=== PATIENT | female | born 1950 | race Caucasian/White ===

== ENCOUNTER 2020-02-15 13:32 | Emergency (ER) | payer MEDICARE, OTHER ==
[2020-02-15] MEDS ORDERED: Acetaminophen 500 MG TAB ONE (13:47)
[2020-02-15] MEDS ORDERED: Cefepime 2 GM VIAL ONE ×2 (13:47→13:50)
[2020-02-15] MEDS ORDERED: Vancomycin 1.5 GRAM/300 ML BAG ONE (13:50)
[2020-02-15 13:58] LABS: #Lymphocytes 1.5 thou/uL (1.20-3.40); #Monocytes 0.5 thou/uL (0.11-0.59); #Neutrophils 6.8 thou/uL (1.40-6.50); %Basophils 0.2 % (0.0-1.0); %Eosinophils 0.3 % (0.0-10.0); %Lymphocytes 17.1 % (21.0-51.0); %Monocytes 5.1 % (0.0-10.0); %Neutrophils 77.3 % (42.0-75.0); Hemoglobin 12.3 g/dL (12.0-16.0); Mean Corpuscular HGB CONC 30.8 g/dL (32.0-36.0); Mean Corpuscular Hemoglobin 29.2 pg (27.0-31.0); Mean Corpuscular Volume 94.8 fL (78.0-98.0); Mean Platelet Volume 5.9 fL (7.4-10.4); Platelet Count 311 thou/uL (130-400); RBC Distribution Width 11.4 % (11.5-14.5); Red Blood Cell (RBC) Count 4.21 mill/uL (4.20-5.40); White Blood Cell (WBC) Count 8.8 thou/uL (4.8-10.8)
[2020-02-15 14:14] LABS: ALT (SGPT) 82 U/L (8-55); AST (SGOT) 59 U/L (5-34); Albumin 3.6 g/dL (3.4-4.8); Alkaline Phosphatase 43 U/L (40-110); Anion Gap 17 mmol/L (10-20); BUN (Urea Nitrogen) 13 mg/dL (9.8-20.1); Bilirubin, Total 0.4 mg/dL (0.2-1.2); Calc. Creatinine Clearance 0 mL/min (70-130); Calcium 8.3 mg/dL (7.8-10.44); Carbon Dioxide 27 mmol/L (23-31); Chloride 88 mmol/L (98-107); Estimated GFR-MDRD 68; Globulin 3.2 g/dL (2.4-3.5); Glucose 79 mg/dL (80-115); Potassium 4.4 mmol/L (3.5-5.1); Protein, Total 6.8 g/dL (6.0-8.3); Sodium 128 mmol/L (136-145)
[2020-02-15 14:32] LABS: CKMB 1.1 ng/mL (0-6.6)
[2020-02-15] MEDS ORDERED: Dexamethasone 4 mg/ml Vial ONE (14:51)
--- NOTE | 2020-02-15 16:45 | RAD ---
PORTABLE CHEST: Date: 02-15-2020 Comparison: None FINDINGS: This portable study at 1358 shows a normal sized heart, but there are patchy interstitial and more co nfluent infiltrative changes in the lungs, more so in the lower half than the upper. While this could represent some pulmonary edema, some of the areas are more confluent and the possibility of infectio n, including Covid, should be entertained. The apices are relatively clear. If any effusions are pres ent, they are minimal. IMPRESSION: Confluent and prominent interstitial infiltrates, mainly in lower halves of each lung. See discussion above. POS: HOME
== END 2020-02-15 18:45 | disposition short-term general hospital (02) ==
LOC: BURERS 13:32
DX: U07.1 COVID-19 (principal); J12.89 Other viral pneumonia; R09.02 Hypoxemia; E03.9 Hypothyroidism, unspecified
CPT/HCPCS: 36415; 71045; 80053; 82553; 83605; 83880; 84484; 85025; 87040; 87086; 93005; 96365; 96375; J0692; J1100; J3370